=== PATIENT | female | born 1980 | race Caucasian/White ===

== ENCOUNTER 2019-10-11 17:18 | Emergency (ER) | payer MEDICAID ==
[~2019-10-11] VITALS: Ht 170 cm; Wt 78.7 kg
[2019-10-11 17:58] LABS: BILIRUBIN,URINE NEGATIVE (NEGATIVE); CLARITY,URINE SL CLOUDY; COLOR,URINE YELLOW; GLUCOSE, URINE (UA) NEGATIVE (NEGATIVE); KETONES,URINE NEGATIVE (NEGATIVE); LEUKOCYTE ESTERASE ,URINE 1+ (NEGATIVE); NITRITE,URINE POSITIVE (NEGATIVE); PH,URINE 6.5 (5-9); PROTEIN,URINE NEGATIVE (NEGATIVE)
[2019-10-11 18:02] LABS: BACTERIA,URINE MODERATE /HPF; RBC,URINE RARE /HPF; SQUAMOUS EPITHELIAL CELL,UR 0-2 /HPF
[2019-10-11] MEDS ORDERED: CEPHALEXIN 250 MG (KEFLEX) CAP PO STA (18:38)
--- NOTE | 2019-10-11 18:44 | ED GU-Female ---
General Chief Complaint: Back Problems Stated Complaint: L SIDE KIDNEY PAIN Nursing Triage Note: COMPLAINS OF LEFT SIDED KIDNEY PAIN. HX OF KIDNEY STONES AND THINKS SHE IS TRYING TO PASS ONE AGAIN. Nursing Sepsis Screen: No Definite Risk Source: patient Exam Limitations: no limitations (INDU DAVIES MED STUDENT) History of Present Illness Date Seen by Provider: Oct 11, 2019 Time Seen by Provider: 18:24 Initial Comments Pt ambulates into ED with cc of left flank pain. Constricting pain began two days ago, is constant and similar to pain she has had before related to kidney stones. Rates pain 7/10, does not radiate and is improved with ibuprofen 800mg she takes daily. Denies fever, chills, nausea, vomiting, hematuria. Timing/Duration: constant, yesterday Severity/Quality: moderate Location: suprapubic, left flank, urethral Radiation: none Activities at Onset: none Prior Genitourinary Problems: similar symptoms Sexual [place] History: single partner Modifying Factors: Worsens With Movement, Worsens With Palpation, Worsens With Urinating Associated Symptoms: No abdominal pain, No diaphoresis; dysuria; No fever/chills, No loss of bladder control; lower back pain; No nausea/vomiting (INDU DAVIES MED STUDENT) Initial Comments Does report dysuria. Recently had urinary tract infection that was similar. Associated Symptoms: dysuria, lower back pain; No nausea/vomiting (EMPERATRIZ AMAYA MD) Allergies and Home Medications Allergies Coded Allergies: No Known Drug Allergies (Unverified , 10/11/19) Patient Home Medication List Home Medication List Reviewed: Yes (INDU DAVIES MED STUDENT) Home Medication List Reviewed: Yes (EMPERATRIZ AMAYA MD) Review of Systems Review of Systems Constitutional: No chills, No fever, No malaise, No weakness EENTM: No ear pain, No eye pain, No mouth pain, No nose pain, No throat pain Respiratory: No cough, No dyspnea on exertion Cardiovascular: No chest pain, No edema Gastrointestinal: No abdominal pain, No nausea, No vomiting Genitourinary: see HPI, burning, frequency, flank pain, pain Musculoskeletal: No joint pain, No muscle pain Skin: No lesions, No lumps, No rash Psychiatric/Neurological: Denies Headache; Other (bipolar disorder) Endocrine: Denies Intolerance to Cold, Denies Intolerance to Heat (INDU DAVIESMED STUDENT) Constitutional: No chills, No fever Respiratory: no symptoms reported Cardiovascular: no symptoms reported Genitourinary: burning, frequency (EMPERATRIZ AMAYA MD) Past Htbrnsc-Lrhobw-Jwqdge Hx Past Med/Social Hx: Reviewed Nursing Past Med/Soc Hx (EMPERATRIZ AMAYA MD) Patient Social History Alcohol Use: Denies Use Recreational Drug Use: No Smoking Status: Current Someday Smoker Recent Foreign Travel: No Contact w/Someone Who Travel: No Recent Infectious Disease Expo: No Recent Hopitalizations: No (INDU DAVIES MED STUDENT) Seasonal Allergies Seasonal Allergies: No (INDU DAVIES MED STUDENT) Past Medical History Tubal Ligation Respiratory: No Cardiac: Yes Hypertension Neurological: No Genitourinary: Yes Kidney Stones Gastrointestinal: No Musculoskeletal: No Endocrine: No HEENT: No Cancer: No Psychosocial: Yes Bipolar Integumentary: No (INDU ADVIES MED STUDENT) Family Medical History Reviewed Nursing Family Hx (EMPERATRIZ AMAYA MD) Cancer (father), Diabetes (mother) (INDU DAVIES MED STUDENT) Physical Exam Vital Signs Vital Signs - First Documented 10/11/19 17:20 Temp 36.7 Pulse 80 Resp 16 B/P (MAP) 181/111 (134) Pulse Ox 99 O2 Delivery Room Air (EMPERATRIZ AMAYA MD) Vital Signs Capillary Refill : Less Than 3 Seconds (INDU DAVIES MED STUDENT) Height, Weight, BMI Height: '" Weight: lbs. oz. kg; 27.00 BMI Method: General Appearance: WD/WN, mild distress HEENT: PERRL/EOMI, normal ENT inspection, TMs normal, pharynx normal Neck: non-tender, supple Cardiovascular: regular rate, rhythm, no edema, no gallop, no murmur Respiratory: chest non-tender, lungs clear, normal breath sounds, no respiratory distress, no accessory muscle use Gastrointestinal: non tender, soft Back: no vertebral tenderness, CVA tenderness (L) Extremities: no pedal edema, no calf tenderness Neurologic/Psychiatric: alert, oriented x 3, other (pressured speech) Skin: normal color, warm/dry Lymphatic: no adenopathy (axillary, cervical ) (INDU DAVIES,MED STUDENT) General Appearance: WD/WN, mild distress Cardiovascular: regular rate, rhythm, no murmur Respiratory: lungs clear, normal breath sounds Neurologic/Psychiatric: alert, oriented x 3 Skin: normal color, warm/dry (EMPERATRIZ AMAYA MD) Progress/Results/Core Measures Suspected Sepsis Recent Fever Within 48 Hours: No Infection Criteria Present: None New/Unexplained Altered Menta: No Sepsis Screen: No Definite Risk SIRS Temperature: Pulse: 80 Respiratory Rate: 16 Blood Pressure 181 /111 Mean: 134 (INDU DAVIESMED STUDENT) Results/Orders Lab Results Laboratory Tests Test 10/11/19 17:50 Range/Units Urine Color YELLOW Urine Clarity SL CLOUDY Urine pH 6.5 5-9 Urine Specific [place] 1.020 1.016-1.022 Urine Protein NEGATIVE NEGATIVE Urine Glucose (UA) NEGATIVE NEGATIVE Urine Ketones NEGATIVE NEGATIVE Urine Nitrite POSITIVE NEGATIVE Urine Bilirubin NEGATIVE NEGATIVE Urine Urobilinogen 0.2 < = 1.0 MG/DL Urine Leukocyte Esterase 1+ H NEGATIVE Urine RBC (Auto) 1+ H NEGATIVE Urine RBC RARE /HPF Urine WBC 5-10 H /HPF Urine Squamous Epithelial Cells 0-2 /HPF Urine Crystals NONE /LPF Urine Bacteria MODERATE H /HPF Urine Casts NONE /LPF Urine Mucus NEGATIVE /LPF Urine Culture Indicated YES (EMPERATRIZ AMAYA MD) My Orders Orders - EMPERATRIZ AMAYA MD Cephalexin Capsule (Keflex Capsule) (10/11/19 18:38) (EMPERATRIZ AMAYA MD) Vital Signs/I&O 10/11/19 17:20 Temp 36.7 Pulse 80 Resp 16 B/P (MAP) 181/111 (134) Pulse Ox 99 O2 Delivery Room Air (EMPERATRIZ AMAYA MD) Vital Signs/I&O Capillary Refill : Less Than 3 Seconds (INDU DAVIES MED STUDENT) Blood Pressure Mean: 134 Progress Note : Time: 18:46 Progress Note Seen and evaluated. Ordering UA with UX. UA demonstrates UTI. Will start antibiotic therapy w/ Cephlex 500mg (INDU DAVIES MED STUDENT) Progress Note : Progress Note Seen and evaluated the patient and agree with above except as indicated. I have directed the plan of care. UA ordered. This does demonstrate UTI. Physical exam findings and history consistent with UTI. Keflex 500 mg by mouth given. Discharged home with return precautions. Patient verbalize understanding instructions and agreement with plan. (EMPERATRIZ AMAYA MD) Departure Impression Primary Impression: Urinary tract infection Qualified Codes: N30.00 - Acute cystitis without hematuria Disposition: HOME, SELF-CARE Condition: Improved Departure-Patient Inst. Decision time for Depature: 19:03 (EMPERATRIZ AMAYA MD) Referrals: NO,LOCAL PHYSICIAN (PCP/Family) Primary Care Physician Patient Instructions: Urinary Tract Infection, Adult (DC) Add. Discharge Instructions: All discharge instructions reviewed with patient and/or family. Voiced understanding. Take medications as directed. You may take Tylenol/acetaminophen 1000 mg every 8 hours as needed for fever or pain. You may take ibuprofen 600 mg every 8 hours as needed for fever or pain. Drink plenty of fluids. Follow-up with your DrAlicia in a few days for recheck. Return for worse pain, fever, vomiting, weakness, breathing problems or other concerns as needed. Scripts Cephalexin (Cephalexin) 500 Mg Tablet 500 MG PO BID, #13 TAB 0 Refills Prov: EMPERATRIZ AMAYA MD 10/11/19 Work/School Note: Local Medical Staff Listing INDU DAVIES,MED STUDENT Oct 11, 2019 18:44 EMPERATRIZ AMAYA MD Oct 11, 2019 19:05
[2019-10-11] MEDS ORDERED: CEPH500T PO (19:04)
[2019-10-11 19:08] VITALS: BP 146/96
== END 2019-10-11 19:08 | disposition home or self-care (01) ==
LOC: ER 17:19
DX: N39.0 Urinary tract infection, site not specified (principal); I10 Essential (primary) hypertension; F31.9 Bipolar disorder, unspecified; F17.200 Nicotine dependence, unspecified, uncomplicated; Z98.51 Tubal ligation status; Z87.442 Personal history of urinary calculi
CPT/HCPCS: 81000; 84703; 87077; 87088; 87186; 99283